=== PATIENT | male | born 1950 | race Caucasian/White ===

== ENCOUNTER 2018-09-29 06:33 | Day surgery (SDC) | payer MEDICARE ==
--- NOTE | 2018-09-22 21:09 | EKG REPORT ---
SEVERITY:- ABNORMAL ECG - SINUS RHYTHM NONSPECIFIC INTRAVENTRICULAR CONDUCTION DELAY : Confirmed by: Tami Keenan MD 22-Sep-2018 21:08:45
[~2018-09-29 06:33] MED LIST: CEFAZOLIN 1 GM/D5W RTU 1 GM/50 ML RTUPB IV PRN; LACTATED RINGERS 1000 ML IV PRN
[2018-09-29] MEDS ORDERED: HYDROMORPHONE HCL INJ/PF 2 MG/ML AMPULE ONE (06:35)
[2018-09-29] MEDS ORDERED: KETOROLAC TROMETHAMINE 60 MG/2 ML SDV ONE (06:35)
[2018-09-29] MEDS ORDERED: ONDANSETRON HCL INJ/PF 4 MG/2 ML SDV ONE (06:36)
[2018-09-29] MEDS ORDERED: DEXAMETHASONE SOD PHOSPHATE INJ 4 MG/1 ML VIAL ONE (06:36)
[2018-09-29] MEDS ORDERED: ACETAMINOPHEN 1,000 MG/100 ML RTUPB IV ONE (06:36)
[2018-09-29] MEDS ORDERED: FENTANYL CITRATE INJ/PF 100 MCG/2 ML AMPUL ONE (06:36)
[2018-09-29] MEDS ORDERED: PROPOFOL INJ 200 MG/20 ML VIAL IV ONE ×2 (06:36→09:14)
[2018-09-29] MEDS ORDERED: MIDAZOLAM 2 MG/2 ML INJ ONE (06:36)
[2018-09-29] MEDS ORDERED: CEFAZOLIN 1 GM/D5W RTU 1 GM/50 ML RTUPB IV ONE (07:04)
[2018-09-29] MEDS ORDERED: BUPIVACAINE HCL 0.5%-EPI 1:200000 INJ/PF 30 ML VIAL ONE (07:08)
[2018-09-29] MEDS ORDERED: ATENOLOL 50 MG TABLET PO ONE (08:00)
[2018-09-29] MEDS ORDERED: FENTANYL CITRATE INJ/PF 100 MCG/2 ML AMPUL IV PRN ×3 (09:05)
[2018-09-29] MEDS ORDERED: DIPHENHYDRAMINE HCL 50 MG/ML VIAL IV PRN (09:05)
[2018-09-29] MEDS ORDERED: PROMETHAZINE HCL INJ 25 MG/1 ML VIAL IV PRN ×2 (09:05)
[2018-09-29] MEDS ORDERED: OXYCODONE-ACETAMINOPHEN 5-325 MG TABLET PO PRN ×3 (09:05→09:33)
[2018-09-29] MEDS ORDERED: MEPERIDINE HCL/PF INJ 25 MG/1 ML DISP.SYRIN IV PRN (09:05)
[2018-09-29] MEDS ORDERED: MORPHINE SULFATE 10 MG/ML INJ IV PRN (09:05)
[2018-09-29] MEDS ORDERED: ONDANSETRON HCL INJ/PF 4 MG/2 ML SDV IV PRN (09:05)
--- NOTE | 2018-09-29 09:32 | Operative Report ---
Operative Report DATE OF SURGERY: 09/29/18 PREOPERATIVE DIAGNOSIS: melanoma POSTOPERATIVE DIAGNOSIS: melanoma OPERATION: wide excision SURGEON: PETR FALCON 2ND Manager Integrated: TOMEKA MCCAIN ANESTHESIA: Moderate Sedation TISSUE REMOVED OR ALTERED: skin rt back COMPLICATIONS: none ESTIMATED BLOOD LOSS: 10cc INTRAOPERATIVE FINDINGS: see dictation PROCEDURE: see dictation
--- NOTE | 2018-09-29 09:35 | Discharge Summary ---
Discharge Summary (SDC) - Discharge Final Diagnosis: melanoma rt back Date of Surgery: 09/29/18 Condition: Good Treatment or Instructions: keep wound dry for 24 hrs then ok to shower Referrals: NADIR BEST NP [Primary Care Provider] - Discharge Diet: As Tolerated Discharge Activity: Activity As Tolerated Report the Following to Your Physician Immediately: Nausea, Vomiting, Increase in Pain, Unusual Bleeding
--- NOTE | 2018-09-29 09:57 | OPERATIVE REPORT E ---
Operative Report NAME: SUKH KEENAN : 1950 AGE: 67Y DATE OF SURGERY: 09/29/2018 ROOM: PREOPERATIVE DIAGNOSIS: Melanoma, right back. POSTOPERATIVE DIAGNOSIS: Melanoma, right back. OPERATIVE PROCEDURE: Wide excision of melanoma, right back. SURGEON: PETR FALCON M.D. TUMBLER MACHINE OPERATOR HELPER: RODRIGUE Rosenthal for skin retraction and wound closure. INDICATIONS FOR PROCEDURE: This is a 67-year-old male who presented to the outpatient surgical clinic, referred by his thread reeler, Dr. Can. He had a previous biopsy of the lesion on his posterior right shoulder which revealed melanoma. He was, therefore, scheduled for a wide excision. PROCEDURE: The patient was brought to the operating room awake, alert, in stable condition, placed on the operating table, given IV sedation. He was then placed in a left lateral decubitus position with his right shoulder exposed. After adequate prep and drape, an elliptical area around the lesion was anesthetized with 1% lidocaine plain for a distance of approximately 2 cm on all 4 sides of the lesion. Using a 10 blade, an incision was made elliptically around the incision 2 cm from the center and dissection was carried down through subcutaneous tissue with Bovie cautery into the subcutaneous fat. It was then excised with Bovie cautery. A superior and inferior flap was raised with Bovie cautery and then the deep dermal tissue was reapproximated with interrupted 3-0 Vicryl and the skin was reapproximated with interrupted 3-0 nylon. A sterile dressing was applied which completed the procedure. Estimated blood loss was less than 10 mL. Sponge and needle counts were correct x2. The patient was then transferred to recovery in stable condition, no complications. DICTATING PHYSICIAN: PETR FALCON M.D. [id number] PHY#: [id number] ID: [id number] JOB#: [id number] ACCT: [id number] cc:PETR FALCON M.D. >
[2018-09-29] MEDS ORDERED: EPHEDRINE SULFATE INJ 50 MG/1 ML AMPULE ONE (11:33)
[2018-09-29 11:56] VITALS: BP 116/71
== END 2018-09-29 11:20 | disposition home or self-care (01) ==
LOC: OROUT 06:33
PROVIDERS: ATTEND Surgery
DX: C43.59 Malignant melanoma of other part of trunk (principal); E11.9 Type 2 diabetes mellitus without complications; F43.29 Adjustment disorder with other symptoms; I10 Essential (primary) hypertension; Z79.899 Other long term (current) drug therapy; Z79.84 Long term (current) use of oral hypoglycemic drugs; Z79.82 Long term (current) use of aspirin; Z79.4 Long term (current) use of insulin; Z87.891 Personal history of nicotine dependence
CPT/HCPCS: 93005; 82962; 88305 ×2; 93010; 11600; J2250; A9270; J3490 ×2; J0690; J1100; J3010; J2405; J2704; J0131; 300; J1170; J1885